=== PATIENT | male | born 1965 | race Two or more races ===

== ENCOUNTER 2017-06-23 13:35 | Outpatient (CLI) | payer OTHER ==
[~2017-06-23 13:35] MED LIST: MEDROL4 MG PO; TUSICOF LIQUID120 ML PO; XOPENEX1.25 MG/0. IH; ZANTAC300 MG PO
== END 2017-06-23 13:44 | disposition home or self-care (01) ==
LOC: RAD 13:35
DX: M17.0 Bilateral primary osteoarthritis of knee (principal)

== ENCOUNTER 2022-11-19 07:58 | Outpatient (CLI) | payer OTHER | END 2022-11-19 08:10 | disposition home or self-care (01) | LOC: RX STUDY 07:58 | PROVIDERS: ATTEND Internal Medicine Gastroenterology | DX: R13.0 Aphagia (principal) ==

== ENCOUNTER 2022-11-20 07:58 | Outpatient (CLI) | payer OTHER | END 2022-11-20 08:00 | disposition home or self-care (01) | LOC: SONOGRAMA 07:58 | PROVIDERS: ATTEND Internal Medicine Gastroenterology | DX: R16.0 Hepatomegaly, not elsewhere classified (principal); E04.8 Other specified nontoxic goiter ==

== ENCOUNTER 2023-11-08 09:57 | Outpatient (CLI) | payer OTHER | END 2023-11-08 10:10 | disposition home or self-care (01) | LOC: TOM 09:57 | PROVIDERS: ATTEND Internal Medicine Cardiovascular Disease | DX: I71.21 Aneurysm of the ascending aorta, without rupture (principal) | CPT/HCPCS: 71275 ==

== ENCOUNTER 2024-06-25 16:47 | Emergency (ER) | payer OTHER ==
[~2024-06-25] VITALS: Ht 180.3 cm; Wt 88.5 kg
[2024-06-25] MEDS ORDERED: CEFTRIAXONE SODIUM 1,000 MG VIAL IM ONE (17:45)
[2024-06-25] MEDS ORDERED: KETOROLAC TROMETHAMINE 60 MG VIAL IM ONE (17:45)
[2024-06-25] MEDS ORDERED: TETANUS & DIPHTHERIA TOX,ADULT 0.5 ML VIAL IM ONE (17:45)
[2024-06-25] MEDS ORDERED: LIDOCAINE HCL 1% 10ML VIAL PERCUT ONE (17:45)
[2024-06-25] MEDS ORDERED: PEPCID AC20 MG PO (19:11)
[2024-06-25] MEDS ORDERED: CEPHALEXIN750 MG PO (19:11)
== END 2024-06-25 21:42 | disposition home or self-care (01) ==
LOC: ER 16:50
DX: S91.021A Laceration with foreign body, right ankle, initial encounter (principal); W26.8XXA Contact with other sharp object(s), not elsewhere classified, initial encounter; Y93.89 Activity, other specified; Y92.89 Other specified places as the place of occurrence of the external cause

== ENCOUNTER 2025-04-16 11:59 | Outpatient (CLI) | payer OTHER ==
[~2025-04-16 11:59] MED LIST changes: +CEPHALEXIN750 MG PO; +PEPCID AC20 MG PO
== END 2025-04-16 12:08 | disposition home or self-care (01) ==
LOC: RAD 11:59
PROVIDERS: ATTEND Family Medicine
DX: R05.1 Acute cough (principal)